=== PATIENT | female | born 1960 | race Caucasian/White ===

== ENCOUNTER → 2024-07-10 06:55 | Outpatient (CLI) | payer OTHER, SELFPAY ==
--- NOTE | 2024-07-10 06:57 | DI.US.S_ITS ---
PROCEDURE: US PELVIC COMPLETE INDICATIONS: OVARIAN PAIN TECHNIQUE: Real-time scanning was performed of the pelvic organs, with image documentation. Additional endovaginal scanning was necessary due to incomplete visualization of the adnexal and endometrial structures by transabdominal scanning. COMPARISON: None. FINDINGS: Uterus: 5.4 x 2.2 x 3.8 cm. Endometrium is within normal limits at 3 mm. Ovaries: Not seen bilaterally. Other: No pathologic free fluid. Area concern in the right groin, no specific sonographic abnormality identified. IMPRESSION: Nonthickened endometrium at 3 mm. The ovaries were not seen. Dictated by: Vidal Campbell M.D. on 07/10/2024 at 7:41 Approved by: Vidal Campbell M.D. on 07/10/2024 at 7:42
== END ==
PROVIDERS: Referring Provider Student in an Organized Health Care Education/Training Program; Visit Provider Student in an Organized Health Care Education/Training Program
DX: N94.89 Other specified conditions associated with female genital organs and menstrual cycle (principal); Z87.42 Personal history of other diseases of the female genital tract
CPT/HCPCS: 76830; 76856